=== PATIENT | male | born 1940 | race Caucasian/White ===

== ENCOUNTER 2021-03-06 07:08 | Inpatient (IN) | payer OTHER ==
--- OUTSIDE RECORDS SUMMARY | 2021-03-06 07:12 | XMS REPORT | Continuity of Care Document ---
:1940 Author Organization [facility] t Address [address] [place] [address] Care Team Providers Name Role Phone CADEN, A Attending Clinician Unavailable Caden CARNES, A Attending Clinician Pob, Lab Main Attending Clinician Unavailable Only, Test Attending Clinician Unavailable Doctor Unassigned, Name Attending Clinician Unavailable [place] Attending Clinician Unavailable CADEN, A Admitting Clinician Unavailable Caden CARNES, A Admitting Clinician Edita Admitting Clinician Unavailable Payers Payer Name Policy Type Policy Number Effective Date Expiration Date [facility] [id number] 2020 MEDICARE GOLD 00:00:00 [facility] - [id number] MEDICARE SOLUTIONS - MEDICARE COMPLETE (MEDICARE REPLACEMENT PPO) Problems This patient has no known problems. Allergies, Adverse Reactions, Alerts Allergy Allergy Status Severity Reaction(s) Onset Inactive Treating Comm ents Source Name Type Date Date Clinician CODEINE DRUG Active Low N/V Univers INGREDI 7-16 ity of 00:00: [place] [address] Medical Branch Codeine Drug Active Nausea Univers Intolera and/or 16 ity of nce Vomiting 00:00: [place] [address] Medical Branch Codeine Allergy Active [place] [facility] e Group Social History Social Habit Start Date Stop Date Quantity Comments Source Exposure to Not sure [facility] SARS-CoV-2 (event) Medica l Branch Tobacco use and 2020-09-20 2020-09-20 Never used [facility] exposure 00:00:00 00:00:00 Medical Branch Sex Ass[birth year] At [birth year] [facility] 00:00:00 00:00:00 Medical Branch Smoking Status Start Date Stop Date Source Unknown if ever smoked [facility] Former smoker 2020-09-20 00:00:00 2020-09-20 00:00:00 [facility] Medications Ordered Filled Start Stop Current Ordering Indication Dosage Frequency Signature Comments Components Source Medication Medication Date Date Medication? Clinician (SIG) Name Name losartan-hy Yes losartan Un aaron drochloroth 8-04 100 ity of iazide 20:56: mg-hydroch [place] 100-25 mg 23 lorothiazi Medi shira per tablet de 25 mg Branc h tablet Take 1 tablet by mouth once daily clopidogreL Yes Plavix 75 U nivers (PLAVIX) 75 8-04 mg tablet ity of mg tablet 20:56: Take 1 [place] 23 tablet Medical every day Branch by oral route as directed for 30 days. cloNIDine Yes clonidine Uni vers 0.1 mg 8-04 HCl 0.1 mg ity of tablet 20:56: tablet [place] 23 Take 1 Medical tablet Branch twice a day by oral route. aspirin 81 Yes Adult Low Un aaron mg EC 8-04 Dose ity of tablet 20:56: Aspirin 2 [place] 23 tab po qd Medical Branch losartan-hy Yes losartan Un aaron drochloroth 8-04 100 ity of iazide 20:56: mg-hydroch [place] 100-25 mg 23 lorothiazi Medi shira per tablet de 25 mg Branc h tablet Take 1 tablet by mouth once daily clopidogreL Yes Plavix 75 U nivers (PLAVIX) 75 8-04 mg tablet ity of mg tablet 20:56: Take 1 [place] 23 tablet Medical every day Branch by oral route as directed for 30 days. cloNIDine Yes clonidine Uni vers 0.1 mg 8-04 HCl 0.1 mg ity of tablet 20:56: tablet [place] 23 Take 1 Medical tablet Branch twice a day by oral route. aspirin 81 Yes Adult Low Un aaron mg EC 804 Dose ity of tablet 20:56: Aspirin 2 [place] 23 tab po qd Medical Branch lactated Yes 1000mL at 100 Unive rs ringers IV 8-04 mL/hr, ity of infusion 20:30: 1,000 [place] 1[place]000 [place] 00 IV Medical Infusion, Branch CONTINUOUS , Starting Sat09/21/20 at 1530, Until Discontinu ed, Routine, PACU lactated 2020- No 1000mL at 100 Univ ers ringers IV 8 08-04 mL/hr, ity of infusion 20:30: 22:56 1,000 mL, Girish as 1,000 mL 00 :24 IV Medical Infusion, Branch CONTINUOUS , Starting Sat09/21/20 at 1530, Until Sat09/21/20 at 1756, Routine, PACU balanced Yes PRN, Univers salt irrig 09-21 Starting ity o f soln comb1 20:04: Sat09/21/20 [place] (BSS PLUS) 00 at 1504, Medic al ophthalmic Until Branch solution Discontinu 500 mL bag ed, Routine, Intra-op carbachoL Yes PRN, Univers (MIOSTAT) 09-21 Starting ity of 0.01 % 20:04: Sat09/21/20 [place] intraocular 00 at 1504, Medi shira injection Until Branch Discontinu ed, Routine, Intra-op balanced 2020- No PRN, Univers salt [place] 09-21 Starting ity of soln comb1 20:04: 22:56 Sat09/21/20 [place] (BSS PLUS) 00 :24 at 1504, Medic al ophthalmic Until Wed Bran ch solution 09/21/20 at 500 mL bag 1756, Routine, Intra-op carbachoL 2020- No PRN, Univers (MIOSTAT) 09-21 Starting ity o f 0.01 % 20:04: 22:56 09/21/20 [place] intraocular 00 :24 at 1504, Medi shira injection Until Wed Branc h 09/21/20 at 1756, Routine, Intra-op ceFAZolin Yes PRN, Univers (ANCEF) 09-21 Starting ity of injection 20:03: 09/21/20 [place] 00 [place] 1503, Medical Until Branch Discontinu ed, ROBERT, Intra-op dexamethaso Yes PRN, Univer s ne 09-21 Starting ity of (DECADRON 20:03: 09/21/[place] PHOSPHATE[place] 00 at 1503, Medic al injection Until Branch Discontinu ed, Routine, Intra-op DUOVISC Yes PRN, Univers (DUOVISC 09-21 Starting ity of VISCO 20:03: 09/21/20 [place] ELASTIC) 3 00 at 1503, Medic al %-4 %(0.5 Until Branch mL) 1 % Discontinu (0.55 mL) ed, intraocular Routine, injection Intra-op ceFAZolin 2020- No PRN, Univers (ANC) 09-21 Starting ity of injection 20:03: 22:56 09/21/20 [place] 00 :24 at 1503, Medical Until Wed Branch 09/21/20 at 1756, ROBERT, Intra-op dexamethaso 2020- No PRN, Unive rs ne 09-21 Starting ity of (DECADRON 20:03: 22:56 Sat09/21/20 [place] PHOSPHATE) 00 :24 at 1503, Medic al injection Until Wed Branc h 09/21/20 at 1756, Routine, Intra-op DUOVISC 2020- No PRN, Univers (DUOVISC 09-21 Starting ity of VISCO 20:03: 22:56 09/21/20 [place] ELASTIC) 3 00 :24 at 1503, Medic al %-4 %(0.5 Until Wed Branc h mL) 1 % 09/21/20 at (0.55 mL) 1756, intraocular Routine, injection Intra-op EPINEPHrine Yes PRN, Univer s 1:1,000 (1 09-21 Starting ity o f mg/mL) 20:01: 09/21/20 [place] (ADRENALIN) 00 at 1501, Medi shira injection Until Branch Discontinu ed, Routine, Intra-op EPINEPHrine 2020- No PRN, Unive rs 1:1,000 (1 09-21 Starting ity of mg/mL) 20:01: 22:56 09/21/20 [place] (ADRENALIN) 00 :24 at 1501, Medi shira injection Until Sat Branc h 09/21/20 at 1756, Routine, Intra-op sodium Yes PRN, Univers chloride 8- Starting ity of (NS) 20:00: 09/21/20 [place] injection 00 at 1500, Medica l Until Branch Discontinu ed, Routine, Intra-op sodium 2020- No PRN, Univers chloride 09-21 Starting ity of (NS) 20:00: 22:56 09/21/20 [place] injection 00 :24 at 1500, Medica l Until Sat Branch 09/21/20 at 1756, Routine, Intra-op water for Yes PRN, Univers irrigation 09-21 Starting ity o f irrigation 19:59: Sat09/21/20 [place] solution 00 at 1459, Medical Until Branch Discontinu ed, Routine, Intra-op neomycin-po Yes PRN, Univer s lymyxin-dex 09-21 Starting ity of amethasone 19:59: 09/21/20 [place] (MAXITROL) 00 at 1459, Medic al 3.5 Until Branch mg/g-10,000 Discontinu unit/g-0.1 ed, % Routine, ophthalmic Intra-op ointment water for 2020- No PRN, Univers irrigation 09-21 Starting ity of irrigation 19:59: 22:56 [facility] 09/21/20 [place] solution 00 :24 at 1459, Medical Until [facility] Branch 09/21/20 at 1756, Routine, Intra-op neomycin-po 2020- No PRN, Unive rs lymyxin-dex 09-21 Starting ity of amethasone 19:59: 22:56 [facility] 09/21/20 [place] (MAXITROL) 00 :24 at 1459, Medic al 3.5 Until Sat Branch mg/g-10,000 09/21/20 at unit/g-0.1 1756, % Routine, ophthalmic Intra-op ointment Hyaluronida Yes PRN, Univer s se, Human 09-21 Starting ity of Recomb. 19:48: 09/21/20 [place] (HYLENEX) 00 at 1448, Medica l injection Until Branch Discontinu ed, Routine, Intra-op eye block Yes PRN, Univers syringe 09-21 Starting ity o f mL 19:48: 09/21/20 [place] 00 at 1448, Medical Until Branch Discontinu ed, Intra-op Hyaluronida 2020- No PRN, Unive rs se, Human 09-21 Starting ity o f Recomb. 19:48: 22:56 [facility] 09/21/20 [place] as (HYLENEX) 00 :24 at 1448, Medica l injection Until [facility] h 09/21/20 at 1756, Routine, Intra-op eye block 2020- No PRN, Univers syringe 11 09-21 Starting ity of mL 19:48: 22:56 [facility] 09/21/20 [place] 00 :24 at 1448, Medical Until [facility] 09/21/20 at 1756, Intra-op mydriatic 2020- No .5mL 0.5 mL, Univ ers #5 09-21 Right Eye, ity of ophthalmic 18:45: 18:59 ONCE, 1 [place] solution 00 :00 dose, Sat Medica l 0.5 mL 09/21/20 at Branch syringe 1345, Routine, DSU Pre-op lactated 2020- No 1000mL at 42 Unive rs ringers IV 09-21 mL/hr, ity of infusion 18:45: 19:16 1,000 mL, [place] 1,000 mL 00 :00 IV Medical Infusion, Branch ONCE, 1 dose, 09/21/20 at 1345, Routine, DSU Pre-op mydriatic 2020- No .5mL 0.5 mL, Univ ers #5 09-21 Right Eye, ity of ophthalmic 18:45: 18:59 ONCE, 1 [place] solution 00 :00 dose, Wed Medica l 0.5 mL 09/21/20 at Branch syringe 1345, Routine, DSU Pre-op lactated 2021-0 2021- No 1000mL at 42 Unive rs ringers IV 8 08-04 mL/hr, ity of infusion 18:45: 19:16 1,000 mL, [place] 1,000 mL 00 :00 IV Medical Infusion, Branch ONCE, 1 dose, Sat09/21/20 at 1345, Routine, DSU Pre-op clopidogreL Yes Plavix 75 U nivers (PLAVIX) 75 7-20 mg tablet ity of mg tablet 14:23: Take 1 [place] 03 tablet Medical every day Branch by oral route as directed for 30 days. cloNIDine Yes clonidine Uni vers 0.1 mg 7-20 HCl 0.1 mg ity of tablet 14:23: tablet [place] 03 Take 1 Medical tablet Branch twice a day by oral route. aspirin 81 Yes Adult Low Un aaron mg EC 7-20 Dose ity of tablet 14:23: Aspirin 2 [place] 03 tab po qd Medical Branch clopidogreL Yes Plavix 75 U nivers (PLAVIX) 75 7-20 mg tablet ity of mg tablet 14:23: Take 1 [place] 03 tablet Medical every day Branch by oral route as directed for 30 days. cloNIDine Yes clonidine Uni vers 0.1 mg 7-20 HCl 0.1 mg ity of tablet 14:23: tablet [place] 03 Take 1 Medical tablet Branch twice a day by oral route. aspirin 81 Yes Adult Low Un aaron mg EC 7-20 Dose ity of tablet 14:23: Aspirin 2 [place] 03 tab po qd Medical Branch losartan-hy Yes losartan Un a[place] drochloroth 7-20 100 ity of iazide 14:23: mg-hydroch [place] 100-25 mg 02 lorothiazi Medi shira per tablet de 25 mg Branc h tablet Take 1 tablet by mouth once daily losartan-hy Yes losartan Un [place] drochloroth 7-20 100 ity of iazide 14:23: mg-hydroch [place] 100-25 mg 02 lorothiazi Medi shira per tablet de 25 mg Branc h tablet Take 1 tablet by mouth once daily levothyroxi Yes Euthyrox Un a[place] ne 5-27 88 mcg ity of (EUTHYROX) 00:00: tablet [place] 88 mcg 00 Take 1 Medical tablet tablet Branch every day by oral route. levothyroxi 2020-0 Yes Euthyrox Un aaron ne 5-27 88 mcg ity of (EUTHYROX) 00:00: tablet [place] 88 mcg 00 Take 1 Medical tablet tablet Branch every day by oral route. levothyroxi 2020-0 Yes Euthyrox Un aaron ne 5-27 88 mcg ity of (EUTHYROX) 00:00: tablet [place] 88 mcg 00 Take 1 Medical tablet tablet Branch every day by oral route. levothyroxi 2020-0 Yes Euthyrox Un aaron ne 5-27 88 mcg ity of (EUTHYROX) 00:00: tablet [place] 88 mcg 00 Take 1 Medical tablet tablet Branch every day by oral route. metaxalone 2020-0 Yes metaxalone U nivers 800 mg 3-11 800 mg ity of tablet 00:00: tablet 00 Take 1 Medical tablet 3 Branch times a day by oral route. metaxalone 2020-0 Yes metaxalone U nivers 800 mg 3-11 800 mg ity of tablet 00:00: tablet 00 Take 1 Medical tablet 3 Branch times a day by oral route. metaxalone 2020-0 Yes metaxalone U nivers 800 mg 3-11 800 mg ity of tablet 00:00: tablet 00 Take 1 Medical tablet 3 Branch times a day by oral route. metaxalone 2020-0 Yes metaxalone U nivers 800 mg 3-11 800 mg ity of tablet 00:00: tablet [place] 00 Take 1 Medical tablet 3 Branch times a day by oral route. spironolact 2020-0 Yes 25mg Take 25 mg Univers one 25 mg 8-04 by mouth. ity o f tablet 00:00: [facility] spironolact 2020-0 Yes 25mg Take 25 mg Univers one 25 mg 8-04 by mouth. ity o f tablet 00:00: [facility] spironolact 2020-0 Yes 25mg Take 25 mg Univers one 25 mg 8-04 by mouth. ity o f tablet 00:00: [facility] spironolact 2020-0 Yes 25mg Take 25 mg Univers one 25 mg 8-04 by mouth. ity o f tablet 00:00: [facility] amlodipine amlodipine No amlodipine [place] 10 mg 10 mg 10 mg da tablet tablet tablet Medical Group Aspir-81 Aspir-81 No Aspir-81 [place] [facility] levothyroxi levothyroxi No levothyrox [place] ne 25 mcg ne 25 mcg ine 25 mcg da tablet tablet tablet Medical Group spironolact spironolact No spironolac [place] one 25 mg one 25 mg tone 25 mg da tablet tablet tablet Medical Group Vitamin D3 Vitamin D3 No Vitamin D3 [place] [facility] Vital Signs Vital Name Observation Time Observation Value Comments Source Respiratory rate 2020-09-21 20:25:00 18 /min [facility] Systolic blood 2020-09-21 20:20:00 223 mm[Hg] Univer sity of pressure [facility] Diastolic blood 2020-09-21 20:20:00 105 mm[Hg] Unive rsity of [facility] Heart rate 2020-09-21 20:20:00 64 /min Universi ty of [facility] Oxygen saturation in 2020-09-21 20:20:00 93 /min University of Arterial blood by [facility] Pulse oximetry Branch Body temperature 2020-09-21 19:06:00 37 Molly [facility] ersity [facility] Body weight 2020-09-16 17:44:00 90 kg Universi ty [facility] Medical Branch BMI 2020-09-16 17:44:00 26.87 kg/m2 Univers ty [facility] Respiratory rate 2020-09-21 20:25:00 18 /min [facility] Sy[facility]olic blood 2020-09-21 20:20:00 223 mm[Hg] Univer sity of [facility] Branch Diastolic blood 2020-09-21 20:20:00 105 mm[Hg] Unive rsity of [facility] Heart rate 2020-09-21 20:20:00 64 /min Universi ty of [facility] Branch Oxygen saturation in 2020-09-21 20:20:00 93 /min University of Arterial blood by [place] [employer] shira Pulse oximetry Branch Body temperature 2020-09-21 19:06:00 37 Molly Univ ersity of [place] [facility] [place] Body weight 2020-09-16 17:44:00 90 kg Universi ty of [place] [facility] [place] BMI 2020-09-16 17:44:00 26.87 kg/m2 Universi ty [facility] BP Diastolic 2017-11-01 00:00:00 83 mm[Hg] [facility] BP Systolic 2017-11-01 00:00:00 131 mm[Hg] [facility] Procedures Procedure Date / Time Performing Source Performed Clinician PHACOEMULSIFICATION OF 2020-09-21 Abhi Negrete [facility] CATARACT WITH INTRAOCULAR 19:32:00 [facility] LENS IMPLANT CONSENT/REFUSAL FOR DIAGNOSIS 2020-09-19 Doctor Unassigned, [facility] AND TREATMENT 20:05:07 [place] [facility] Branch CONSENT/REFUSAL FOR DIAGNOSIS 2020-09-19 Doctor Unassigned, [facility] AND TREATMENT 20:05:07 [place] [facility] ASSIGNMENT OF BENEFITS 2020-09-19 Doctor Unassigned, [facility] 20:04:42 [place] [facility] ASSIGNMENT OF BENEFITS 2020-09-19 Doctor Unassigned, [facility] 20:04:42 [place] [facility] Branch CONSENT/REFUSAL FOR DIAGNOSIS 2020-09-19 Doctor Unassigned, [facility] AND TREATMENT 20:04:14 [place] [facility] CONSENT/REFUSAL FOR DIAGNOSIS 2020-09-19 Doctor Unassigned, [facility] AND TREATMENT 20:04:14 [place] [facility] Branch ASSIGNMENT OF BENEFITS 2020-09-19 [facility] 20:03:48 [place] [facility] ASSIGNMENT OF BENEFITS 2020-09-19 Doctor Unassigned, [facility] 20:03:48 [place] [facility] ASSIGNMENT OF BENEFITS 2020-09-05 Doctor Unassigned, [facility] 20:32:12 [place] [facility] Encounters Start End Encounter Admission Attending Care Care Encounter Source Date/Time Date/Time Type Type Clinicians Facility Department ID 2020-12-19 [id number] Univers 12:04:20 ABHI [facility] 2020-12-19 [facility] [id number] Univers 09:13:07 ABHI [facility] 2020-09-21 2020-09-21 [facility] [id number] Univers 13:28:00 15:55:00 Encounter Abhi Laureano [id number] jorge montalvo [place] 4[place]2.[place].2.686 [place] [id number] [facility] 071 Branch 2020-09-21 2020-09-21 Surgery Caden [facility] [id number] Univers 15:01:00 15:40:00 Abhi Db Georgi [id number] ity of [place].2.686 [place] [id number] [facility] 020 Branch 2020-09-19 2020-09-19 Society Editor Avtar, Adc Lab Main [facility] 1.2.8 [id number] [id number] Univers 15:06:54 15:21:54 Visit Abhi Negrete 350.1.13.1 0 [place]y [place] 4[place].2.686 [place] Profess[place] [id number] [address] 2020-09-19 2020-09-19 Laboratory Only, Adc Test [facility] 1.2.840. [id number] Univers 15:06:07 15:21:07 Only CadenAbhi 350.1.13.1 0 [place]y [place].2.686 [place] [id number] [address] 2020-09-19 2020-09-19 Outpatient R [facility] [id number] Univers 15:00:00 15:00:00 [id number] ity [facility] 2020-09-19 2020-09-19 [facility] [id number] Univers 15:00:00 15:00:00 ABHI ity [facility] 2020-09-05 2020-09-05 Outpatient R [facility] [id number] Univers 16:00:00 16:00:00 [id number] ity [facility] 2020-09-05 2020-09-05 Society Editor Avtar, Adc Lab Main [facility] 1.2.8 40.114 [id number] Univers 15:34:57 15:49:57 Visit Caden Abhi Db Georgi 350.1.13.1 0 [place]y [place].2.[place] Profess[place] [id number] Pa dical nal [address] [facility] 2020-09-05 2020-09-05 Laboratory Only, Adc Test [facility] 1.2.840. 114 [id number] Univers 15:26:37 15:41:37 Only Abhi Negrete 350.1.13.1 0 ity of [place] 4.2.7.2.686 [facility] [id number] [facility] 353 Branch 2020-09-05 2020-09-05 Outpatient R CADEN [facility] [id number] Univers 15:15:00 15:15:00 ABHI ity [facility] 2020-09-05 2020-09-05 Orders Doctor YASMIN [id number] Univers 00:00:00 00:00:00 Only Unassigned, CARO 350.1.13.10 [facility] 4.2.7.2.686 [facility] [id number] [place] [address] Branch 2020-01-06 2020-01-06 Outpatient Edita [facility] [id number] [place] 02:29:00 02:29:00 1118 danyelle Medical [facility] 2017-11-01 2017-11-01 Gunenr Abrams [facility] [place] - [id number] M [place]or 00:00:00 00:00:00 MD Celena: [facility] [address] [place] [phone] , Ph. 2017-10-18 2017-10-18 Richi [facility] [place] - [id number] M atagor 00:00:00 00:00:00 Discovery danyelle Kohler MD: [address] [place] [address], [place] [address] , Ph. Results Test Description Test Time Test Comments Results Result Comments Source Prostate specific Ag panel - Serum or Plasma 2017-10-26 10:3 0:00 Test Item Value Reference Range Interpretation Comme nts Prostate specific Ag [Mass/volume] in Serum or Plasma (test 31.27 NG/mL 0.0-4.00 H code = 2857-1) free PSA % (test code = free PSA %) 9.00 % >25 L free PSA (test code = free PSA) 2.84 NG/mL [facility] Culture panel - Urine 2017-10-18 10:30:00 Test Item Value Reference Range Interpretation Comments Color of Urine by Auto (test dark yellow code = 15272-0) Appearance of Urine (test code SL cloudy clear A = 5767-9) Glucose [Presence] in Urine by negative negative Automated test strip (test code = 99074-3) Bilirubin.total [Mass/volume] negative negative in Urine (test code = 1978-6) Ketones [Mass/volume] in Urine negative negative by Automated test strip (test code = 20371-3) Specific gravity of Urine by 1.015 1.003-1.030 Automated test strip (test code = 42941-6) blood urine (test code = blood negative negative urine) pH of Urine (test code = 6.000 5-9 2756-5) protein urine (UA) (test code = =1+ (50 negative H protein urine (UA)) Urobilinogen [Presence] in normal 0.2-1.0 Urine (test code = 21068-1) Nitrite [Presence] in Urine by negative negative Test strip (test code = 5802-4) Leukocyte esterase [Presence] negative negative in Urine by Automated test strip (test code = 98605-9) Erythrocytes [#/volume] in <1 0-5 Urine by Automated count (test code = 798-9) Leukocytes [#/area] in Urine =6-10 0-5 H sediment by Automated count (test code = 68770-1) Epithelial cells [Presence] in =1-5 0-5 Urine sediment by Light microscopy (test code = 65408-9) Bacteria identified in Urine by none detected none detect Culture (test code = 630-4) Casts [#/area] in Urine =6-10 none detect H sediment by Automated count (test code = 43914-5) urine culture added? (test code yes = urine culture added?) Mucus [Presence] in Urine by =1 none detect Automated (test code = 98896-4) Spermatozoa [Presence] in Urine =10-29 none detect H by Automated (test code = 67732-7) [facility] by [id number] 00:00:00 Test Item Value Reference Range Interpretation Comments Bacteria identified in no growth after 2 Urine by Culture (test days code = 630-4) [facility]
--- NOTE | 2021-03-06 09:15 | RAD REPORT ---
EXAM DESCRIPTION: CT - Head Brain Wo Cont - 03/06/2021 9:01 am CLINICAL HISTORY: worseningn of aphasia;Aphasia COMPARISON: No comparisons TECHNIQUE: All CT scans are performed using dose optimization technique as appropriate and may inclu de automated exposure control or mA/KV adjustment according to patient size. 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 Age advanced cerebral atrophy. Age-indeterminate right basal ganglia lacunar infarct. Ex vacuo dilatation of the ventricular system. The paranasal sinuses and mastoids are clear. The calvarium is intact. 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 No acute intracranial hemorrhage. No acute large vascular territory infarct is identified.
--- NOTE | 2021-03-06 09:21 | RAD REPORT ---
EXAM DESCRIPTION: RAD - Chest Single View - 03/06/2021 9:14 am CLINICAL HISTORY: DYSPNEA COMPARISON: No comparisons FINDINGS: Lines: None. Lungs: A few small patchy areas of opacities are present in the right upper lobe. Left lung is clear. Pleural: No significant pleural effusions or pneumothorax. Cardiac: The heart size is within normal limits. Bones: No acute fractures. Other: Torturous thoracic aorta. IMPRESSION: Ill-defined nonspecific opacities in the right upper lobe could reflect mild infection o r inflammation.
[2021-03-06 09:25] LABS: Absolute Lymphocytes (CBC) 0.8 K/uL (0.7-4.9); Hematocrit 36.1 % (39.6-49.0); Lymphocytes % 10.3 % (15.3-44.8); MPV 6.4 fL (7.6-11.3); RBC Red Blood Cell Count 4.23 M/uL (4.33-5.43)
[2021-03-06 09:31] LABS: Protime INR 1.54
[2021-03-06 09:45] LABS: Albumin 2.4 g/dL (3.4-5.0); Bilirubin Direct 0.3 mg/dL (0-0.2); Bilirubin Total 0.9 mg/dL (0.2-1.0); Potassium 4.1 mmol/L (3.5-5.1); Protein, Total 6.7 g/dL (6.4-8.2)
[2021-03-06 09:50] LABS: Troponin High Sensitivity 103.1 pg/mL (<58.9)
[2021-03-06] MEDS ORDERED: FENTANYL CITR 100 MCG/2 ML ONE (10:14)
--- NOTE | 2021-03-06 10:20 | EDPHYS ---
Physician Documentation [facility] Name: Jean Adams Age: 80 yrs Sex: Male : 1940 Arrival Date: 03/06/2021 Time: 07:10 Bed 20 Private MD: ED Physician Landon Ramirez HPI: 03/06 09:59 This 80 yrs old Male presents to ER via Wheelchair with complaints of Difficulty jr8 Swallowing. 09:59 Severity of symptoms: At their worst the symptoms were moderate. Modifying factors: The jr8 symptoms are alleviated by nothing, the symptoms are aggravated by nothing. It is unknown whether or not the patient has had similar symptoms in the past. The patient has been recently seen by a physician:. This is a 80-year-old male patient that was brought to the emergency room for further evaluation of worsening of dysphagia. Daughter of patient stated that he had a small stroke and heart attack back on 16 February. Had been in [facility] for the past several days doing rehabilitation but had noticed significant decline in the ability to swallow over the last few days. Also noticed worsening of contracture of the left hand. Denies any other new symptoms at this time. Patient was discharged from [facility] rehab to come to the emergency room today for further evaluation of worsening of symptoms.. Historical: - Allergies: 07:20 Codeine; vg1 - PMHx: 07:20 Myocardial infarction; Transient cerebral ischemia; Hypertensive disorder; vg1 - Immunization history:: Client reports having NOT received the Covid vaccine. - Social history:: Smoking status: Patient denies any tobacco usage or history of. ROS: 09:59 Eyes: Negative for injury, pain, redness, and discharge, ENT: Negative for injury, jr8 pain, and discharge, Neck: Negative for injury, pain, and swelling, Cardiovascular: Negative for chest pain, palpitations, and edema, Respiratory: Negative for shortness of breath, cough, wheezing, and pleuritic chest pain, Abdomen/GI: Negative for abdominal pain, nausea, vomiting, diarrhea, and constipation, Back: Negative for injury and pain, MS/Extremity: Negative for injury and deformity, Skin: Negative for injury, rash, and discoloration. 09:59 Neuro: Positive for weakness, Dysphagia. Exam: 10:10 Constitutional: This is a well developed, well nourished patient who is awake, alert, jr8 and in no acute distress. Eyes: Pupils equal round and reactive to light, extra-ocular motions intact. Lids and lashes normal. Conjunctiva and sclera are non-icteric and not injected. Cornea within normal limits. Periorbital areas with no swelling, redness, or edema. ENT: Nares patent. No nasal discharge, no septal abnormalities noted. Tympanic membranes are normal and external auditory canals are clear. Oropharynx with no redness, swelling, or masses, exudates, or evidence of obstruction, uvula midline. Mucous membranes moist. Neck: Trachea midline, no thyromegaly or masses palpated, and no cervical lymphadenopathy. Supple, full range of motion without nuchal rigidity, or vertebral point tenderness. No Meningismus. Cardiovascular: Regular rate and rhythm with a normal S1 and S2. No gallops, murmurs, or rubs. Normal PMI, no JVD. No pulse deficits. Respiratory: Lungs have equal breath sounds bilaterally, clear to auscultation and percussion. No rales, rhonchi or wheezes noted. No increased work of breathing, no retractions or nasal flaring. Abdomen/GI: Soft, non-tender, with normal bowel sounds. No distension or tympany. No guarding or rebound. No evidence of tenderness throughout. Back: No spinal tenderness. No costovertebral tenderness. Full range of motion. Skin: Warm, dry with normal turgor. Normal color with no rashes, no lesions, and no evidence of cellulitis. MS/ Extremity: Pulses equal, no cyanosis. Neurovascular intact. Full, normal range of motion. Contracted left hand 10:10 Neuro: Orientation: to person, place, time \\T\\ situation. Mentation: is normal, Memory: is normal, Cranial nerves: CN I not tested, CN II- XII are normal as tested, extraocular movements are intact, Facial palsy and sensory deficits are absent. Speech is hoarse, slowed, Cerebellar function: normal finger to nose testing, Motor: moves all fours, Strength is 3/5 in the left arm and left leg, Sensation: no obvious gross deficits, seizure activity, is not displayed by the patient, Abnormal movements: there are no abnormal movements. Vital Signs: 07:11 BP 129 / 77; Pulse 80; Resp 16; Temp 98.4; Pulse Ox 95% ; Weight 90.72 kg; Height 6 ft. vg1 0 in. (182.88 cm); Pain 0/10; 08:23 BP 132 / 78; Pulse 85; Resp 17; Pulse Ox 95% ; vg1 22:00 BP 173 / 80; Pulse 95; Resp 16; Pulse Ox 91% on 2 lpm NC; ld1 23:30 BP 160 / 91; Pulse 95; Resp 16; Temp 98.6; Pulse Ox 95% on 2 lpm NC; ld1 07:11 Body Mass Index 27.12 (90.72 kg, 182.88 cm) vg1 MDM: 08:13 Patient medically screened. jr8 10:10 Data reviewed: vital signs, nurses notes, lab test result(s), EKG, radiologic studies, jr8 CT scan, MRI, plain films. Data interpreted: Pulse oximetry: on room air is 95 %. Interpretation: normal. Counseling: I had a detailed discussion with the patient and/or guardian regarding: the historical points, exam findings, and any diagnostic results supporting the discharge/admit diagnosis, lab results, radiology results, the need for further work-up and treatment in the hospital. 03/06 08:39 Order name: Basic Metabolic Panel; Complete Time: 10:09 03/06 08:39 Order name: CBC with Diff; Complete Time: 10:49 03/06 08:39 Order name: LFT's; Complete Time: 10:03/06 08:39 Order name: Magnesium; Complete Time: 10:09 03/06 08:39 Order name: NT PRO-BNP; Complete Time: 10:09 03/06 08:39 Order name: PT-INR; Complete Time: 09:34 03/06 08:39 Order name: Troponin HS; Complete Time: 10:09 03/06 08:39 Order name: XRAY Chest (1 view); Complete Time: 09:25 03/06 08:39 Order name: CT Head Brain wo Cont; Complete Time: 09:25 03/06 09:34 Order name: MRI - Brain Wo Cont; Complete Time: 14:12 03/06 10:17 Order name: Blood Culture Adult (2) 8 03/06 10:36 Order name: Manual Differential; Complete Time: 10:49 EDMS 03/06 10:53 Order name: COVID-19 SARS RT PCR (Document "Date of Onset" if Symptomatic); Complete [facility] Time: 14:12 03/06 08:39 Order name: EKG; Complete Time: 08:40 03/06 08:39 Order name: Cardiac monitoring; Complete Time: 08:48 [facility] 03/06 08:39 Order name: EKG - Nurse/Tech; Complete Time: 08:48 8 03/06 08:39 Order name: IV Saline Lock; Complete Time: 09:17 8 03/06 08:39 Order name: Labs collected and sent; Complete Time: 09:17 8 03/06 08:39 Order name: O2 Per Protocol; Complete Time: 08:44 03/06 08:39 Order name: O2 Sat Monitoring; Complete Time: 08:44 jr Administered Medications: 10:18 Drug: fentaNYL (PF) 50 mcg Route: IVP; Site: right antecubital; [facility] 10:29 Drug: Zofran (Ondansetron) 4 mg Route: IVP; Site: right antecubital; [facility] 10:29 Drug: foLIC Acid 1 mg Route: IVPB; Site: right antecubital; [facility] 10:30 Drug: Zosyn (piperacillin-tazobactam) 3.375 grams Route: IVPB; Infused Over: 60 mins; [facility] Site: right antecubital; 10:32 Not Given (Other Intervention Used): Aspirin Suppository 300 mg DE once [facility] 11:02 Drug: NS 0.9% 1000 ml Route: IV; Rate: 75 ml/hr; Site: left antecubital; [facility] 03/07 00:09 Follow up: Response: No adverse reaction; IV Status: Infusion continued upon admission vc1 Disposition: 07:48 Co-signature as Attending Physician, Landon Ramirez MD I agree with the assessment and catrachito plan of care. Disposition Summary: 03/06/21 10:20 Hospitalization Ordered Hospitalization Status: Inpatient Admission [facility] Provider: Delmar Esqueda Condition: Stable jr Problem: new jr Symptoms: are unchanged [facility] Bed/Room Type: Standard [facility] Location: Telemetry/MedSurg (Inpatient)(03/06/21 22:18) mw Room Assignment: 410(01/17/22 23:04) mw Diagnosis - Cerebral infarction, unspecified jr8 - Dysphagia jr8 - Weakness jr8 Forms: - Medication Reconciliation Form jr8 - SBAR form jr8 Signatures: Dispatcher [employer] EDLoly Lemus Martha RN RN Landon Sherwood MD MD cha Roszak, Josh, PA PA jr8 Shobha Minaya RN RN vg1 Kelsea Dale RN RN jh5 Venus Anaya RN vc1 Corrections: (The following items were deleted from the chart) 03/06 15:12 10:20 Telemetry/MedSurg (Inpatient) jr8 bd 15:12 10:20 jr8 bd 22:18 15:12 [facility] ER HOLD bd mw 22:18 15:12 ERHOLD- bd mw 23:04 22:18 mw mw
--- NOTE | 2021-03-06 10:20 | ER ---
Nurse's Notes [facility] Name: Jean Adams Age: 80 yrs Sex: Male : 1940 Arrival Date: 03/06/2021 Time: 07:10 Bed 20 Private MD: Diagnosis: Cerebral infarction, unspecified;Dysphagia;Weakness Presentation: 03/06 07:11 Chief complaint: Patient's son or daughter states: On Saturday03/04/21 pt was at [address] for difficulty swallowing and 'was unable to treat pt'. Daughter states is still having difficulty swallowing solids and fluids. Coronavirus screen: Vaccine status: Patient reports being unvaccinated. Client denies travel out of the [place] in the last 14 days. Ebola Screen: Patient negative for fever greater than or equal to 101.5 degrees Fahrenheit, and additional compatible Ebola Virus Disease symptoms. Initial Sepsis Screen: Does the patient meet any 2 criteria? No. Patient's initial sepsis screen is negative. Does the patient have a suspected source of infection? No. Patient's initial sepsis screen is negative. Risk Assessment: Do you want to hurt yourself or someone else? Patient reports no desire to harm self or others. Onset of symptoms was March 04, 2021. 07:11 Method Of Arrival: Wheelchair [facility] 07:11 Acuity: RUTH ANN 3 vg1 Triage Assessment: 07:20 General: Appears in no apparent distress. uncomfortable, Behavior is calm, cooperative. vg1 Pain: Denies pain. Neuro: Level of Consciousness is awake, alert, obeys commands, Oriented to person, place, time, situation. Respiratory: Airway is patent Respiratory effort is even, unlabored. Historical: - Allergies: 07:20 Codeine; vg1 - PMHx: 07:20 Myocardial infarction; Transient cerebral ischemia; Hypertensive disorder; vg1 - Immunization history:: Client reports having NOT received the Covid vaccine. - Social history:: Smoking status: Patient denies any tobacco usage or history of. Screenin:17 Abuse screen: Denies threats or abuse. Nutritional screening: No deficits noted. vg1 Tuberculosis screening: No symptoms or risk factors identified. Fall Risk No fall in past 12 months (0 pts). No secondary diagnosis (0 pts). No IV (0 pts). Ambulatory Aid- Crutches/Cane/Walker (15 pts). Gait- Weak (10 pts.). Mental Status- Oriented to own ability (0 pts). Total Thomas Fall Scale indicates Low Risk Score (25-44 pts). Fall prevention measures have been instituted. Side Rails Up X 2 Placed close to Nursing Station Family Present and informed to notify staff if they need to leave bedside. Assessment: 08:17 General: Appears in no apparent distress. uncomfortable, Behavior is calm, cooperative. vg1 Pain: Denies pain. Neuro: Level of Consciousness is awake, alert, obeys commands, Oriented to person, place, time, situation. Cardiovascular: Patient's skin is warm and dry. Respiratory: Airway is patent Respiratory effort is even, unlabored. GI: No signs and/or symptoms were reported involving the gastrointestinal system. : Morris in place. EENT: Throat is clear is pink. Derm: Skin is pink, warm \\T\\ dry. Musculoskeletal: Circulation, motion, and sensation intact. 16:59 Reassessment: Daughter at bedside would like to have a n order placed that Dr. Berkowitz jh5 can come and see pt here in hospital; daughter states [facility] is on campus on Saturday's and 's. 22:30 Reassessment: Took over care of patient from DAVIDSON Acevedo. vc1 23:30 General: Appears in no apparent distress. uncomfortable, Behavior is calm, cooperative. vc1 Neuro: Level of Consciousness is awake, lethargic, Oriented to person, place. 03/07 00:08 Reassessment: Attempted to call report to 4th floor, no answer, will call back.. vc1 00:31 Reassessment: called report to 4th floor, nurse will call back to get report.. vc1 Vital Signs: 03/06 07:11 BP 129 / 77; Pulse 80; Resp 16; Temp 98.4; Pulse Ox 95% ; Weight 90.72 kg; Height 6 ft. vg1 0 in. (182.88 cm); Pain 0/10; 08:23 BP 132 / 78; Pulse 85; Resp 17; Pulse Ox 95% ; vg1 22:00 BP 173 / 80; Pulse 95; Resp 16; Pulse Ox 91% on 2 lpm NC; ld1 23:30 BP 160 / 91; Pulse 95; Resp 16; Temp 98.6; Pulse Ox 95% on 2 lpm NC; ld1 07:11 Body Mass Index 27.12 (90.72 kg, 182.88 cm) vg1 ED Course: 07:10 Patient arrived in ED. wm 07:20 Triage completed. vg1 07:20 Arm band placed on. vg1 08:01 Patient placed in an exam room, on a stretcher. ll1 08:07 Shobha Minaya, RN is Primary Nurse. vg1 08:13 Theodore Penaloza PA is PHCP. jr8 08:13 Landon Ramirez MD is Attending Physician. jr8 08:17 Patient has correct armband on for positive identification. Placed in gown. Bed in low vg1 position. Call light in reach. Side rails up X2. Adult w/ patient. 08:59 CT Head Brain wo Cont In Process Unspecified. EDMS 09:15 XRAY Chest (1 view) In Process Unspecified. EDMS 10:18 Delmar Esqueda is Hospitalizing Provider. jr8 10:30 Blood Culture Adult (2) Sent. jh5 11:10 COVID-19 SARS RT PCR (Document "Date of Onset" if Symptomatic) Sent. jh5 13:31 MRI - Brain Wo Cont In Process Unspecified. EDMS 17:00 No provider procedures requiring assistance completed. Inserted saline lock: 20 gauge jh5 in left antecubital area, using aseptic technique. 18:41 Primary Nurse role handed off by Shobha Minaya, DAVIDSON bp 18:41 Nikolay Michel, RN is Primary Nurse. bp 03/07 01:40 Patient admitted, IV remains in place. vc1 Administered Medications: 03/06 10:18 Drug: fentaNYL (PF) 50 mcg Route: IVP; Site: right antecubital; jh5 10:29 Drug: Zofran (Ondansetron) 4 mg Route: IVP; Site: right antecubital; jh5 10:29 Drug: foLIC Acid 1 mg Route: IVPB; Site: right antecubital; jh5 10:30 Drug: Zosyn (piperacillin-tazobactam) 3.375 grams Route: IVPB; Infused Over: 60 mins; jh5 Site: right antecubital; 10:32 Not Given (Other Intervention Used): Aspirin Suppository 300 mg SC once jh5 11:02 Drug: NS 0.9% 1000 ml Route: IV; Rate: 75 ml/hr; Site: left antecubital; 5 03/07 00:09 Follow up: Response: No adverse reaction; IV Status: Infusion continued upon admission vc1 Outcome: 03/06 10:20 Decision to Hospitalize by Provider. jr8 03/07 01:40 Admitted to Tele accompanied by nurse, family with patient, via stretcher, room 210. vc1 Condition: good Instructed on the need for admit. 01:40 Patient left the ED. vc1 Signatures: Dispatcher [employer] EDMS Theodore Penaloza PA PA jr8 Nikolay Michel, RN RN Shobha Bustamante RN RN 1 Cinda Carrillo RN RN 1 Monique Mobley RN RN 1 Shey Cox Jessica, RN RN jh5 Venus Anaya RN RN vc1 Corrections: (The following items were deleted from the chart) 03/06 10:32 10:29 Aspirin Suppository 300 mg SC [place] [id number] 03/07 00:08 03/06 22:00 Reassessment: Took over care of patient from DAVIDSON Acevedo. 1 vc1 03/07 00:08 03/06 23:00 General: Appears in no apparent distress. uncomfortable, Behavior is calm, vc1 cooperative, 1 03/07 00:08 03/06 23:00 Neuro: Level of Consciousness is awake, lethargic, Oriented to person, vc1 place, [facility]
[2021-03-06] MEDS ORDERED: ONDANSETRON 4 MG/2 ML VIAL ONE (10:27)
[2021-03-06] MEDS ORDERED: PIPERACIL/TAZO 3.375 GM VIAL IV ONE (10:29)
[2021-03-06] MEDS ORDERED: FOLIC ACID 5 MG/ML VIAL ONE (10:29)
[2021-03-06] MEDS ORDERED: NA CHLORIDE 0.9% 100 ML ONE (10:30)
[2021-03-06] MEDS ORDERED: NA CHLORIDE 0.9% 50 ML ONE (10:35)
[2021-03-06 10:36] LABS: Blood Morphology Comment NOT SEEN (NOT SEEN); Platelet Estimate ADEQ
[2021-03-06] MEDS ORDERED: NA CHLORIDE 0.9% 1,000 ML ONE (11:05)
--- NOTE | 2021-03-06 12:40 | P.HP ---
Certification for Inpatient Patient admitted to: Inpatient With expected LOS: >2 Midnights Practitioner: I am a practitioner with admitting privileges, knowledge of patient current condition, hospital course, and medical plan of care. Services: Services provided to patient in accordance with Admission requirements found in Title 42 Section 412.3 of the Code of Federal Regulations Patient History Date of Service: 03/06/21 Reason for admission: Dysphagia History of Present Illness: 80-year-old gentleman with a history of multiple strokes in the past, history of dysphagia, recent admission for dysphagia at [facility] was brought to the emergency department because patient was suddenly not tolerating his dysphagia diet with comprises of pureed and thickened liquids. Daughter also reports patient mental status has declined lately and they are intermittent periods he becomes absent and just stares. Head CT done in the emergency department showed no acute process. Chest x-ray demonstrated right upper lobe opacities. Patient was confusion during my examination in the ED. He is hospitalized for further management. - Past Medical/Surgical History -: CVA -: Hypertension -: Prostate cancer - Family History Family History: Reviewed- Non-Contributory - Social History Alcohol use: No CD- Drugs: No Place of Residence: Home Review of Systems Other: No reports of diarrhea. No reports of shortness of breath, no report of fever. Except as documented, all other systems reviewed and negative. Physical Examination - Physical Exam General: In no apparent distress, Confused HEENT: Mucous membr. moist/pink Neck: JVD not distended Respiratory: Clear to auscultation bilaterally, Normal air movement Cardiovascular: Regular rate/rhythm, Normal S1 S2, Edema (Trace bilateral pedal edema) Gastrointestinal: Normal bowel sounds, Soft and benign, Non-distended, No tenderness Musculoskeletal: No swelling, No tenderness Integumentary: No rashes, No cyanosis Neurological: Other (Left-sided weakness, speech is garbled.) Lymphatics: No axilla or inguinal lymphadenopathy - Studies Laboratory Data (last 24 hrs) 03/06/21 09:16: PT 17.8 H, INR 1.54 03/06/21 09:16: WBC 7.90, Hgb 12.2 L, Hct 36.1 L, Plt Count 215 03/06/21 09:16: Sodium 136, Potassium 4.1, BUN 17, Creatinine 0.97, Glucose 117 H, Magnesium 3.0 H, Total Bilirubin 0.9, AST 152 H, ALT 25, Alkaline Phosphatase 761 H Assessment and Plan - Problems (Diagnosis) (1) History of CVA (cerebrovascular accident) Current Visit: Yes Status: Acute (2) Dysphagia Current Visit: Yes Status: Acute (3) Pneumonia Current Visit: Yes Status: Acute - Plan Admit the patient to the medical floor. MRI of the brain ordered to rule out acute CVA. Speech therapy consult for swallow evaluation. Keep n.p.o. Cover for aspiration pneumonia with IV Levaquin and Zosyn. Hydrate with D5 normal saline. Family is open to PEG tube if patient needs it. Aspirin and Plavix. - Advance Directives Does patient have a Living Will: Yes Does patient have a Durable POA for Healthcare: No
--- NOTE | 2021-03-06 13:50 | RAD REPORT ---
EXAM DESCRIPTION: MRI - Brain Wo Cont - 03/06/2021 1:39 pm CLINICAL HISTORY: cva, increased aphasia COMPARISON: Head Brain Wo Cont dated 03/06/2021 TECHNIQUE: Sagittal T1-weighted images were obtained along with axial PD, heavily T2-weighted and T2 -FLAIR images. Axial DWI and ADC mapping sequences were also obtained along with coronal heavily T2-w eighted images. FINDINGS: No intracranial hemorrhage is identified. No mass effect, edema or shift of midline struct ures. As a baseline, the patient has advanced for age atrophy with corresponding ventriculomegaly. Nu merous areas of old infarction identified. There is a diffuse T2/IR signal abnormality pattern throug hout the frontal and parietal lobe white matter. White matter signal abnormalities are present in the brainstem and central cerebellar hemispheres. Diffusion-weighted imaging shows several punctate 2 millimeter sized areas of restricted diffusion in the cortical and subcortical regions of each posterior frontal lobe. Similar 3 mm sized signal abnor malities are present in the cortex and subcortical region and deep sulci of the left parietal lobe. A small 3 mm focus of diffusion restriction seen in the posterior left thalamus and in the medial post erior left cerebellum. No acute restricted diffusion in the brainstem. These areas of diffusion signa l abnormality have corresponding diminished signal on ADC mapping. No extra-axial fluid collections. Signal voids are seen as a normal finding in the major intracrania l vessels. No acute globe or orbital content abnormality. No sella or supra sella acute finding. Mastoid air cells and paranasal sinuses are clear of acute finding. IMPRESSION: Numerous punctate areas of nonhemorrhagic acute infarction scattered in the cerebral hem ispheres, left thalamus and left cerebellum. Foci are scattered in multiple vascular distributions which would suggest small emboli coming from ou tside of the head or neck. Patient has a baseline of advanced for age atrophy, severe white matter chronic ischemic change and o ld infarction changes.
[2021-03-06] MEDS ORDERED: ONDANSETRON 4 MG/2 ML VIAL IV PRN (22:25)
[2021-03-06] MEDS ORDERED: ACETAMINOPHEN 500 MG TAB PO PRN (22:25)
[2021-03-06] MEDS ORDERED: Levofloxacin 750mg IV 750 MG/150 ML BAG IV SCH (22:25)
[2021-03-07] MEDS: PIPER TAZO 3.375 GM in NA CHLORIDE 0.9% 100 ML IV SCH ×4 (01:00→17:43)
[2021-03-07 03:49] LABS: Absolute Lymphocytes (CBC) 0.7 K/uL (0.7-4.9); Hematocrit 30.3 % (39.6-49.0); Lymphocytes % 7.5 % (15.3-44.8); RBC Red Blood Cell Count 3.54 M/uL (4.33-5.43)
[2021-03-07 04:13] LABS: Magnesium 2.3 mg/dL (1.8-2.4); Phosphorus 2.9 mg/dL (2.5-4.9); Potassium 4.1 mmol/L (3.5-5.1); Thyroid Stimulating Hormone 2.34 uIU/mL (0.360-3.740)
[2021-03-07 04:52] VITALS: BMI 26.8
--- NOTE | 2021-03-07 06:30 | P.PN ---
Date of Service: 03/07/21 Subjective: No significant change, to be evaluated today by speech therapy Daughter at bedside, states he has been declining over the last month Recent strokes Worsening dysphagia Stage IV prostate cancer ROS: 10 point ROS unable to be fully obtained Physical exam GEN: Alert, confused, mumbles HEENT: Normal conjunctiva, sclera anicteric CV: Regular rate and rhythm, no edema Pulm: Non-labored respirations on 2L NC ABD: Soft, non-tender, non-distended Integumentary: No rashes Neuro: L sided weakness Problem List Acute on chronic CVA Stage IV, metastatic prostate cancer Worsening of chronic dysphagia Left-sided weakness, chronic Multifocal opacities concerning for pneumonia COVID-19 positive MRI (03/06): Not numerous acute CVA Speech therapy consulted, patient with dysphagia, will need modified barium swallow Patient has CT scan with sclerotic lesions in lower lumbar spine, lymphadenopathy, enlarged prostate, concern for metastatic prostate cancer, he has a history of prostate cancer Given a combination of his more frequent and new strokes, stage IV cancer, had a long discussion with patient's daughter at bedside as well as on the phone with 2 other sons It seems most in line with what the patient would want to continue with PEG tube placement if needed, and discharged home on hospice once stable/improved Continue Zosyn for aspiration pneumonia, pulmonology consulted GI consulted for PEG tube placement Continue IV fluids, n.p.o. Neurology consulted Carotids and echocardiogram ordered Dispo: home hospice in 2-3 days, likely needs PEG Time Spent Managing Pts Care (In Minutes): 35
[2021-03-07] MEDS: CLOPIDOGREL 75 MG TABLET PO SCH (09:00)
[2021-03-07] MEDS: ENOXAPARIN 40 MG/0.4 ML SQ SCH (09:47)
[2021-03-07] MEDS: D5 0.9 NS 1,000 ML IV SCH ×2 (09:54→18:43)
--- NOTE | 2021-03-07 14:52 | RAD REPORT ---
EXAM DESCRIPTION: RAD - Barium Swallow Modified - 03/07/2021 2:42 pm CLINICAL HISTORY: Choking when eating food. Dysphagia FINDINGS: FLUORO TIME 2:19 MIN Fourteen fluoroscopic spot images obtained Pharyngeal residue: Vallecular and Pyriform ; honey by spoon, puree by spoon ; nectar by spoon Moderate UES opening, and moderate epiglottic deflection No aspiration
--- NOTE | 2021-03-07 14:58 | RAD REPORT ---
EXAM DESCRIPTION: USCarotid Artery Bilateral03/07/2021 2:48 pm CLINICAL HISTORY: cva COMPARISON: None FINDINGS: The velocity of the right internal carotid artery equals 45 cm/sec. The right ICA/CCA rati o .9 The velocity of the left internal carotid artery equals 77 cm/sec. The left ICA/CCA ratio 1 Mild plaque is present within the carotid arteries. The vertebral arteries demonstrate antegrade flow IMPRESSION: Mild plaque within the carotid arteries without evidence of a hemodynamically significan t stenosis NASCET criteria used. Mild 0-49% stenosis Moderate 50-69% stenosis Severe 70-99% stenosis
--- NOTE | 2021-03-07 15:39 | RAD REPORT ---
EXAM DESCRIPTION: MRI - Lumbar Spine Wo Con - 03/07/2021 3:25 pm CLINICAL HISTORY: Radiculopathy/ COMPARISON: None. TECHNIQUE: Sagittal T1, T2 and STIR weighted sequences were obtained. Axial T1 and T2 sequences were obtained through the lumbar disc levels. FINDINGS: T1 weighted sequences demonstrate diffusely diminished signal throughout the bones. Mild to moderate compression deformity of the L1 vertebral body appears chronic Mild spondylosis L1-2 Disc bulge, ligamentum flavum and facet hypertrophy L2-3. Thecal sac measures 9.5 millimeters. Mild n arrowing of the left and minimal narrowing of the right neural foramina. Disc bulge, ligamentum flavum and facet hypertrophy and osteophytes L3-4. Thecal sac measures 8 chanel meters. Mild to moderate narrowing of the neural foramina Disc bulge, osteophytes, ligamentum flavum and facet hypertrophy L4-5. The thecal sac measures a few millimeters. Moderate to more narrowing of the neural foramina bilaterally. Mild spondylosis L5-S1 IMPRESSION: Spondylosis L4-5 resulting in marked central spinal stenosis Diffusely abnormal signal throughout the bones. This may be secondary to metabolic disease or neoplas m.
[2021-03-07 16:15] LABS: Urine Appearance TURBID (Clear); Urine Bilirubin NEGATIVE (Negative); Urine Blood 3+ (Negative); Urine Color YELLOW (Yellow); Urine Glucose NEGATIVE (Negative); Urine Protein 2+ (Negative); Urine Specific Gravity 1.025 (1.005-1.030); Urine Urobilinogen 0.2 mg/dL (0.2-1.0); Urine pH 5.5 (5.0-7.0)
[2021-03-07 16:24] LABS: Urine Microscopic Reflex ORDER UMIC
[2021-03-07 16:40] LABS: Urine Bacteria <20 /HPF (NONE SEEN)
[2021-03-07] MEDS: MORPHINE 2 MG/ML SYR IV PRN (22:34)
--- NOTE | 2021-03-08 00:32 | CON ---
Reason For: Consultation called because of stroke. History Of Present Illness: Mr. 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 The patient's daughter was in the r oom. She said he suddenly had more difficulty swallowing along with continued difficulty ambulating and difficulty managing his bowel and bladder function and he was admitted to [facility] around the February 26. His daughter says that at some point there he declined and he was later found to be p ositive for COVID-19. She thought he had more sudden change in his swallowing and was brought to [facility] on the that is yesterday. His head CT scan showed no acute ischemic or hemorrh agic change. However, an MRI of his brain identified numerous punctate areas of nonhemorrhagic acute infarct scattered in the cerebral hemispheres and in the left thalamus and cerebellum. The appearan ce of the stroke suggested small emboli coming from possibly the heart that is outside of the neck ve ssels. An echocardiogram is pending. His carotid artery ultrasound study did show mild plaque in th e carotid arteries without evidence of hemodynamically significant stenosis. He has a barium swallow study actually showed moderate impairment of the epiglottic coverage, moderate impairment of the arnoldo lecula with retaining some fluid, but would be clearing. There was mild pyriform sinus retention. O verall, there was moderate oral phase impairment, pharyngeal phase impairment and due to that, there was a recommendation for alternate feeding methods. The patient's daughter was told that he may need a PEG tube, but they are debating that given his stage IV prostate cancer. His lumbar spine MRI ramón ntified severe L4-L5 canal with nerve root stenosis, which is likely a cause for his gait instability and bowel and bladder incontinence. Past Medical History: As noted. Social History: Patient resides at home with family members attending him. Allergies: CODEINE. Current Medications: 1.Plavix 75 mg daily. 2.Lovenox 40 mg subcutaneously daily. 3.He is on Zosyn 3.375 mg every 8 hours. Review of Systems: As noted. He has incontinence of urine, difficulty with bowel or bladder functioning and gait instab ility, dysphagia, failure to thrive, chronic low back pain, and difficulty articulating with slurred speech. Physical Examination: Vital Signs: Blood pressure 144/81, pulse 82 to 89, respiratory rate 16 to 22, temperature 98.3, oxy gen saturation 91%, weight 198 pounds, height 6 feet, BMI 26.9. General: Mr. Adams is resting in bed. He is in no significant distress. HEENT: He does appear normocephalic and atraumatic. Sclerae are anicteric. Some bruising noted in the upper and lower extremities. He otherwise has poor labial lingual guttural sounds. Neurologic: Cranial nerve examination, diffuse weakness in facial muscles and again difficulty with facial excursion and tongue protrusion. His motor examination, he is diffusely weak in the upper and lower extremities around 4/5. He does have decreased sensation to touch and temperature in the uppe r and lower extremities. He has poor coordination in upper and lower extremities and in terms of gai t, he does not ambulate and attempts will be made with physical therapy using a gait belt and a walke r. Laboratory Studies: White blood cell count 8.9, hemoglobin 10.1, INR 1.54. His chemistries are esse ntially unremarkable except his calcium slightly low at 8.0, magnesium normal at 2.3, LDL cholesterol 48, HDL cholesterol 41, TSH 2.34. Liver function studies show alkaline phosphatase elevated at 761, AST elevated at 152, direct bilirubin elevated at 0.3. Urinalysis shows trace esterase and 20 red b lood cells, many uric acid crystals, 3+ blood, 1+, ketones, 2+ protein. COVID-19 test is positive. Assessment And Plan: Mr. Adams is a 80-year-old patient with multiple likely cardioembolic strokes in the setting of hypercoagulable state due to COVID positivity and prostate cancer, mets to the low er back with stage IV. He does have severe L4-L5 central canal nerve root compression, which is impa iring gait and bowel and bladder control. His prognosis is very poor for good recovery. This was di scussed with the patient's family. He does have significant dysphagia and has not had solid food sin ce Saturday, today is Saturday. The patient may be a candidate for at least temporarily an NG tube pl acement; however, it may be difficult for him to have a PEG tube placed given all of his comorbid con ditions and recent stroke. In any event, his comorbid conditions should be addressed. Again, he may be a candidate for hospice at this stage. The patient's daughter is in the room and this was discus sed with her. LARA/GAEL Voice ID: [id number] Report ID: [id number]
[2021-03-08] MEDS: D5 0.9 NS 1,000 ML IV SCH ×3 (00:46→22:12)
[2021-03-08] MEDS: PIPER TAZO 3.375 GM in NA CHLORIDE 0.9% 100 ML IV SCH ×3 (00:46→17:42)
[2021-03-08 03:48] LABS: Absolute Lymphocytes (CBC) 0.7 K/uL (0.7-4.9); Hematocrit 27.9 % (39.6-49.0); Lymphocytes % 8.8 % (15.3-44.8); MPV 6.6 fL (7.6-11.3); RBC Red Blood Cell Count 3.27 M/uL (4.33-5.43)
[2021-03-08 04:18] LABS: ALT/SGPT 19 U/L (12-78); AST/SGOT 64 U/L (15-37); Albumin 1.8 g/dL (3.4-5.0); Alkaline Phosphatase 455 U/L (45-117); BUN Blood Urea Nitrogen 15 mg/dL (7-18); Bicarbonate 27 mmol/L (21-32); Bilirubin Total 0.6 mg/dL (0.2-1.0); Ferritin 4549.1 ng/mL (26-388); Glucose Level 134 mg/dL (74-106); Magnesium 2.2 mg/dL (1.8-2.4); Potassium 3.8 mmol/L (3.5-5.1); Protein, Total 5.8 g/dL (6.4-8.2); Sodium Level 140 mmol/L (136-145)
[2021-03-08] MEDS ORDERED: KCL 20 MEQ/100 mL IVPB 20 MEQ/100 ML BAG IV SCH (05:00)
--- NOTE | 2021-03-08 06:45 | P.PN ---
Date of Service: 03/08/21 Subjective: reports feeling about the same, no significant changes chart review shows patient on 6L NC, however in room, patient breathing comfortably on 2L Daughter states patient was 99-100% on 6L Urine darker today ROS: 10 point ROS unable to be fully obtained Physical exam GEN: Alert, follows commands HEENT: Normal conjunctiva, sclera anicteric CV: Regular rate and rhythm, no edema Pulm: Non-labored respirations on 2L NC ABD: Soft, non-tender, non-distended Integumentary: No rashes Neuro: L sided weakness : tovar bag with dark urine, possibly blood-tinged Problem List Acute on chronic CVA Stage IV, metastatic prostate cancer Worsening of chronic dysphagia Left-sided weakness, chronic Multifocal opacities concerning for pneumonia COVID-19 positive MRI (03/06): Not numerous acute CVA Speech therapy consulted, patient with dysphagia, will need modified barium swallow Patient has CT scan with sclerotic lesions in lower lumbar spine, lymphadenopathy, enlarged prostate, concern for metastatic prostate cancer, he has a history of prostate cancer Given a combination of his more frequent and new strokes, stage IV cancer, had a long discussion with patient's daughter at bedside as well as on the phone with 2 other sons It seems most in line with what the patient would want to continue with PEG tube placement if needed, and discharged home on hospice once stable/improved Continue Zosyn for aspiration pneumonia, pulmonology consulted GI consulted for PEG tube placement, plan for tomorrow Continue IV fluids, n.p.o. speech evaluated, concern for aspiration, recommended PEG Neurology consulted carotid ok echo pending check UA Dispo: home hospice in ~2 days, likely needs PEG Time Spent Managing Pts Care (In Minutes): 35
--- NOTE | 2021-03-08 07:31 | EKG ---
Test Date: 2021-03-06 Test Time: 08:48:10 Burrer Machine: REE MEASUREMENT RESULTS: Intervals: Rate: 86 OK: 164 QRSD: 92 QT: 390 QTc: 466 [place]: P: 65 OK: 164 QRS: 34 T: 108 INTERPRETIVE STATEMENTS: Normal sinus rhythm Cannot rule out Anteroseptal infarct, age undetermined Abnormal ECG No previous ECG available for comparison Electronically Signed On 03-08-21 07:26:36 WELT STITCHER by Adan Antonio
--- NOTE | 2021-03-08 07:50 | RAD REPORT ---
EXAM DESCRIPTION: RAD - Chest Single View - 03/08/2021 7:21 am CLINICAL HISTORY: hypoxia, covid, pneumonia COMPARISON: Chest Single View dated 03/06/2021 FINDINGS: Lines: None. Lungs: Mild worsened aeration of the left lung base. Mild scattered bilateral airspace disease is oth erwise unchanged. Pleural: No significant pleural effusions or pneumothorax. Cardiac: The heart size is within normal limits. Bones: No acute fractures. Other: IMPRESSION: Worsened aeration of the left lung base could reflect atelectasis and/or worsening pneum onia. Other opacities bilaterally are similar.
[2021-03-08] MEDS: MORPHINE 2 MG/ML SYR IV PRN ×2 (08:13→18:25)
[2021-03-08] MEDS: CLOPIDOGREL 75 MG TABLET PO SCH (09:00)
[2021-03-08] MEDS: METHYLPREDNISOLONE 125 MG INJ IV SCH ×2 (10:35→22:11)
[2021-03-08] MEDS: ENOXAPARIN 40 MG/0.4 ML SQ SCH (10:37)
[2021-03-08] MEDS ORDERED: ENOXAPARIN 60 MG/0.6 ML SQ ONE (12:00)
--- NOTE | 2021-03-08 20:54 | PN ---
Subjective: Mr. Adams is resting in bed. He completed lots of studies earlier and everything yest erday and today. He does not have productive speech, he uses gestures, nods, and facial expressions to communicate. He voices by mouthing no significant pain and is able to give thumbs-up signs. His daughter is in the room and communication was with daughter as well. Objective: Vital Signs: Blood pressure 167/81, pulse 77, respiratory rate 18, temperature 98.0, oxy gen saturation 93% to 97% on nasal cannula oxygen. General: Mr. Adams is resting in bed. He is in no significant distress. Neck: There is a defect in the tracheal area that is stable and chronic and is not localized. Extremities: He has movements in the upper and lower extremities, slow. He does move his right more than left upper extremity. Some difficulty mobilizing the lower extremities. Laboratory Data: Most recent chest x-ray today shows worsening aeration in the left lower lobe, like ly reflecting atelectasis or worsening pneumonia. Other opacities are noted bilaterally. It should be noted previously, brain MRI shows numerous punctate areas of nonhemorrhagic acute infarct in the c erebral hemispheres as well as the left thalamus and cerebellum. Also, there was advanced atrophy wi th severe white matter small vessel ischemic disease and old multiple strokes. His lumbar spine MRI shows marked central canal stenosis at L4-L5 and likely metastatic neoplastic disease throughout the lumbar vertebrae. His echocardiogram is still pending. Blood work shows white blood cell count 8.3, hemoglobin 9.5. His chemistries showed essentially unremarkable except chloride 108, glucose 134, c alcium 8.3. Procalcitonin is 8.35. Assessment: Mr. Adams is a 80-year-old patient with multiple medical issues and neurological probl ems including multiple strokes in the setting of COVID positivity and metastatic prostate cancer. He also has pneumonia involving both lobes and is significantly debilitated. Plan: Given the patient's poor prognosis with stage IV prostate cancer and severe lumbar L4-L5 centr al canal stenosis, he is at significant risk of worsening. He currently has likely aspiration pneumo maddie and has not had any significant nutrition for about 4 days. The family does not want to pass an NG tube. The patient planned to have a PEG tube placed by Dr. Hale, drapery counselor tomorrow. His prognosis again is poor for a good recovery given his comorbid conditions including stage IV ca ncer, COVID positivity with pneumonia bilaterally, and his significant debility. Hospice is likely t o be more appropriate and it may be done at home and this was discussed with the patient's daughter. LARA/GAEL Voice ID: [id number] Report ID: [id number]
[2021-03-08] MEDS ORDERED: ENOXAPARIN 100 MG/ML SYR SQ SCH (21:00)
[2021-03-08 23:31] LABS: Urine Appearance TURBID (Clear); Urine Bilirubin ND (Negative); Urine Blood ND (Negative); Urine Color RED (Yellow); Urine Glucose ND (Negative); Urine Microscopic Reflex ORDER UMIC; Urine Protein ND (Negative); Urine Urobilinogen ND mg/dL (0.2-1.0); Urine pH ND (5.0-7.0)
[2021-03-08 23:32] LABS: Urine Specific Gravity ND (1.005-1.030)
[2021-03-08 23:38] LABS: Urine RBC TNTC /HPF (NONE SEEN)
[2021-03-08 23:39] LABS: Urine Bacteria <20 /HPF (NONE SEEN); Urine Urothelial Cells <5 /HPF (NONE SEEN)
[2021-03-09] MEDS: PIPER TAZO 3.375 GM in NA CHLORIDE 0.9% 100 ML IV SCH ×3 (00:48→17:52)
[2021-03-09 04:01] LABS: Potassium 4.4 mmol/L (3.5-5.1)
--- NOTE | 2021-03-09 05:44 | P.PN ---
Date of Service: 03/09/21 Subjective: developed johnna hematuria overnight yesterday had slight blood-tinged appearing urine, now dark red otherwise no new complaints. patient states he is "ok" no nausea/vomiting, no abdominal discomfort ROS: 10 point ROS unable to be fully obtained - difficulty to understand patient Physical exam GEN: Alert, follows commands, seems to understand what is being said, difficulty speaking clearly HEENT: Normal conjunctiva, sclera anicteric CV: Regular rate and rhythm, no edema Pulm: Non-labored respirations on 2L NC ABD: Soft, non-tender, non-distended Integumentary: No rashes Neuro: L sided weakness, weak voice : tovar bag with dark red - johnna blood Problem List Acute on chronic CVA Stage IV, metastatic prostate cancer Worsening of chronic dysphagia Left-sided weakness, chronic Multifocal opacities concerning for pneumonia, likely aspiration COVID-19 positive MRI (03/06): numerous acute CVA Speech therapy consulted, patient with dysphagia, s/p MBS, recommend PEG tube vs comfort feeds Family and patient want PEG tube GI consulted - plan for procedure today Continue Zosyn for aspiration pneumonia, pulmonology consulted Continue IV fluids, n.p.o. Neurology consulted - concern for embolic CVA, recommend minimum aspirin, can start after PEG. Echo resulted today - +ASD Patient received therapeutic lovenox yesterday x1, and afterwards developed more johnna hematuria unclear source of bleed. will obtain renal U/S Urology consulted irrigate if needed, currently no significant clotting Patient has CT scan with sclerotic lesions in lower lumbar spine, lymphadenopathy, enlarged prostate, concern for metastatic prostate cancer, he has a history of prostate cancer Given a combination of his more frequent and new strokes, stage IV cancer, had a long discussion with patient's daughter at bedside as well as on the phone with 2 other sons It seems most in line with what the patient would want to continue with PEG tube placement, and discharged home on hospice once stable/improved Dispo: home hospice in ~1-2 days, needs PEG, hematuria Time Spent Managing Pts Care (In Minutes): 35
[2021-03-09 06:27] LABS: Hematocrit 30.4 % (39.6-49.0); MPV 6.8 fL (7.6-11.3); RBC Red Blood Cell Count 3.51 M/uL (4.33-5.43)
--- NOTE | 2021-03-09 07:41 | RAD REPORT ---
EXAM DESCRIPTION: US - Renal Ultrasound-Complete - 03/09/2021 7:04 am CLINICAL HISTORY: hematuria, prostate cancer COMPARISON: Barium Swallow Modified dated 03/07/2021 FINDINGS: Increased echogenicity of renal cortices. The right kidney measures 11.5 cm. 4.8 cm right renal cyst. The left kidney measures 9.2 cm. No hydronephrosis, focal mass or perinephric fluid. The bladder is decompressed via Morris catheter. IMPRESSION: No evidence hydronephrosis. Increased echogenicity of the kidneys could reflect medical renal disease.
--- NOTE | 2021-03-09 07:44 | ECHO ---
HEIGHT: 6 ft 0 in WEIGHT: 198 lb 0 oz DATE OF STUDY: 03/08/[address]: Wilner Maldonado MD 2-DIMENSIONAL: YES M.MODE: YES DOPPLER: YES COLOR FLOW: YES TDS: NO PORTABLE: NO DEFINITY: NO BUBBLE STUDY: YES DIAGNOSIS: EMBOLIC CEREBRAL VASCULAR ACCIDENT CARDIAC HISTORY: CATHERIZATION: NO SURGERY: NO PROSTHETIC VALVE: NO PACEMAKER: NO MEASUREMENTS (cm) DIASTOLIC (NORMALS) SYSTOLIC (NORMALS) IVSd (0.6-1.2) LA Diam (1.9-4.0) LVEF >50% LVIDd (3.5-5.7) LVIDs (2.0-3.5) %FS % LVPWd (0.6-1.2) Ao Diam (2.0-3.7) 2 DIMENSIONAL ASSESSMENT: RIGHT ATRIUM: NORMAL LEFT ATRIUM: NORMAL RIGHT VENTRICLE: NORMAL LEFT VENTRICLE: NORMAL TRICUSPID VALVE: NORMAL MITRAL VALVE: NORMAL PULMONIC VALVE: NORMAL AORTIC VALVE: NORMAL PERICARDIAL EFFUSION: NONE AORTIC ROOT: NORMAL LEFT VENTRICULAR WALL MOTION: NORMAL. DOPPLER/COLOR FLOW: MILD TRICUSPID REGURGITATION. COMMENTS: NORMAL LEFT VENTRICULAR SIZE AND FUNCTION. BUBBLE STUDY CONSISTANT WITH ATRIAL SEPTAL DEFECT. MILD TRICUSPID REGURGITATION - NORMAL RIGHT VENTRICULAR SYSTOLIC PRESSURE. TECHNOLOGIST: CRISTIAN GUADALUPE/ SUSANA VERDE
[2021-03-09] MEDS: MORPHINE 2 MG/ML SYR IV PRN ×3 (08:41→21:13)
[2021-03-09] MEDS: METHYLPREDNISOLONE 125 MG INJ IV SCH ×2 (08:42→21:12)
--- NOTE | 2021-03-09 09:41 | RAD REPORT ---
EXAM DESCRIPTION: US - Extrem Venous W Compress Shakir - 03/09/2021 8:58 am CLINICAL HISTORY: Abnormal labs COMPARISON: None. TECHNIQUE: Real-time sonographic evaluation of the bilateral lower extremity deep venous systems was performed. FINDINGS: Normal compressibility, flow augmentation, phasic flow and spontaneous flow is identified in both the left and right lower extremity deep venous systems. No intraluminal filling defects seen. IMPRESSION: No DVT in either lower extremity.
[2021-03-09] MEDS ORDERED: LIDOCAINE 2% MPF 5 ML VIAL ONE (11:42)
[2021-03-09] MEDS ORDERED: ONDANSETRON 4 MG/2 ML VIAL ONE (11:42)
[2021-03-09] MEDS ORDERED: propofoL 200 MG/20 ML VIAL IV ONE (11:42)
[2021-03-09] MEDS ORDERED: NA CHLORIDE 0.9% 500 ML ONE (12:01)
[2021-03-09] MEDS ORDERED: LIDOCAINE JELLY 2% 5 ML SYRINGE TOP ONE (12:05)
[2021-03-09] MEDS ORDERED: JEVITY 1.5 CAL LIQUID 1,000 ML BOT RTH SCH (17:00)
[2021-03-09] MEDS: D5 0.9 NS 1,000 ML IV SCH (17:05)
--- NOTE | 2021-03-09 17:42 | RAD REPORT ---
EXAM DESCRIPTION: US - Urinary Bladder - 03/09/2021 5:23 pm CLINICAL HISTORY: patency of catheter Pelvic pain COMPARISON: No comparisons TECHNIQUE: Real-time sonographic evaluation of the urinary bladder was performed. FINDINGS: Morris catheter bulb is visualized within the bladder which is moderately decompressed.
[2021-03-10] MEDS: PIPER TAZO 3.375 GM in NA CHLORIDE 0.9% 100 ML IV SCH ×3 (00:38→16:06)
[2021-03-10] MEDS: D5 0.9 NS 1,000 ML IV SCH ×2 (00:40→19:45)
[2021-03-10 03:59] LABS: Absolute Lymphocytes (CBC) 0.4 K/uL (0.7-4.9); MPV 6.9 fL (7.6-11.3); RBC Red Blood Cell Count 3.71 M/uL (4.33-5.43)
[2021-03-10 04:21] LABS: C-Reactive Protein 81.6 mg/L (<3.00); Magnesium 2.4 mg/dL (1.8-2.4)
--- NOTE | 2021-03-10 06:04 | P.PN ---
Date of Service: 03/10/21 Subjective: s/p PEG placement yesterday starting tube feeds today reports itching along R flank where strap was ROS: 10 point ROS unable to be fully obtained - difficulty to understand patient Physical exam GEN: Alert, follows commands, weak voice HEENT: Normal conjunctiva, sclera anicteric CV: Regular rate and rhythm, no edema Pulm: Non-labored respirations on 3L NC ABD: Soft, non-tender, non-distended, PEG Tube in place Integumentary: No rashes Neuro: L sided weakness, weak voice : tovar bag with yellow urine Problem List Acute on chronic CVA Stage IV, metastatic prostate cancer Worsening of chronic dysphagia Left-sided weakness, chronic Multifocal opacities concerning for pneumonia, likely aspiration COVID-19 positive Hematuria MRI (03/06): numerous acute CVA Speech therapy consulted, patient with dysphagia, s/p MBS, recommend PEG tube vs comfort feeds Family and patient want PEG tube GI consulted - s/p PEG on 03/09. start tube feeds 03/10 Continue Zosyn for aspiration pneumonia, pulmonology consulted Continue IV fluids, n.p.o.; titrate IVF as tube feeds increase / tolerated Neurology consulted - concern for embolic CVA, recommend minimum aspirin, can start after PEG. Echo resulted today - +ASD, negative DVTs in b/l lower extremities Patient received therapeutic lovenox 03/08 x1, and afterwards developed more johnna hematuria renal U/S ok, Urology consulted - placed 3 way cath, irrigated. improved Patient has CT scan with sclerotic lesions in lower lumbar spine, lymphadenopathy, enlarged prostate, concern for metastatic prostate cancer, he has a history of prostate cancer Given a combination of his more frequent and new strokes, stage IV cancer, had a long discussion with patient's daughter at bedside as well as on the phone with 2 other sons PEG placement and home with hospice Dispo: home hospice in ~1-2 days Time Spent Managing Pts Care (In Minutes): 35
[2021-03-10] MEDS: MORPHINE 2 MG/ML SYR IV PRN ×3 (06:35→21:52)
--- NOTE | 2021-03-10 08:38 | RAD REPORT ---
EXAM DESCRIPTION: Isai Single View03/10/2021 5:53 am CLINICAL HISTORY: Chest pain COMPARISON: March 08 2021 FINDINGS: Allowing for differences in inspiration there probably has been no significant change in t he bilateral pulmonary opacities. Heart is borderline enlarged IMPRESSION: No significant change bilateral pulmonary opacities probably pneumonia
[2021-03-10] MEDS ORDERED: DIPHENHYDRAMINE 25 MG TAB/CAP PO PRN (09:42)
[2021-03-10] MEDS: METHYLPREDNISOLONE 125 MG INJ IV SCH ×2 (09:43→21:52)
[2021-03-10] MEDS: OXYBUTYNIN CHLORIDE 5 MG TAB PO SCH ×2 (16:51→21:52)
--- NOTE | 2021-03-10 19:47 | CON ---
Date of Consultation: 03/09/2021 The patient is admitted on the 4th floor in room 410. Reason For Consultation: Gross hematuria. History Of Present Illness: Mr. Adams is a 80-year-old gentleman with a history of multiple prior strokes, history of dysphagia, and a recent admission for dysphagia at [facility], who was brou ght to the emergency department because the patient was not tolerating his dysphagia diet and the dina ghter was concerned that his mental status had also declined. CT scan done in the emergency departme showed no acute process, but subsequent workup including an MRI of the brain was suspicious for nu merous acute cerebrovascular incidents. The patient had undergone a discussion with his program development manager ab out hospice care because he has stage IV metastatic prostate cancer in addition to the sequelae of th e strokes. He was also noted to be COVID-19 positive. Since the beginning of February, as a result o f the strokes, he had a urethral Morris catheter in place. Within the last several days, that cathete r turned from being clear yellow urine to bloody. Physical Examination: The patient is awake, but not responsive in any significant fashion except to noxious stimuli or pain . There is no dyspnea or signs of respiratory distress. A urethral Morris catheter is in place and the efflux of urine is pink at this time. The nurse had izzy ribeiro irrigated the catheter. A 16-[place] Morris catheter was in place. Bladder irrigation and urethral Morris catheter exchange. Procedure Note: I initially started by irrigating the indwelling urethral catheter and it was able t o irrigate nicely and with ease. The efflux of urine after a couple of rounds of irrigation with a 6 0 cc catheter tip syringe and sterile water did clarify the urine significantly. However, because of the persistence of the hematuria, I recommended exchange of the catheter to stabilize his circumstan ce, since it is likely the hematuria is a result of his prostate cancer which is currently bone metas tatic. Also, given the patient's history of smoking, the potential for bladder cancer also exists. As a result, I removed the indwelling 16-[place] urethral Morris catheter and placed a 20-[place] coude tipped Morris catheter into his bladder with some slight difficulty in assuring actual intravesical lo calization. Eventually with some manipulation, I was able to navigate the catheter until I felt it w as comfortably within the bladder, and I filled the balloon with 10 cc of sterile water and an additi onal 5 cc of sterile water. Of note, a lidocaine Uro-Jet was applied for local anesthesia before dada cement of the catheter and did pass with ease into his urethra. Betadine was used to prep his genita jimbo prior to placement of the catheter. I then again irrigated his bladder copiously with several 60 cc syringe fulls of sterile water, and the urine was immediately clear suggestive of the potential f or the bleeding being prostatic urethral in origin, now tamponaded by the presence of the 20-[place] F oley catheter. As a result, I secured the catheter to his StatLock and connected back to a leg bag. Assessment And Recommendations: This is a 80-year-old gentleman with metastatic prostate cancer and recent history of multiple strokes with dysphagia and some weakness, now with urinary retention requi ring placement of a Morris catheter and interval development of gross hematuria. Since I suspect the hematuria is of prostatic urethral origin and is now tamponaded by the presence o f the larger catheter, we will leave this in place and see him in followup. I counseled his daughter on the potential considerations relative to his recent determination to go [facility] hosp[facility] care. In other words, there may be little benefit to an evaluation including a cystoscop y in a patient who is mentally not completely with it and able to cooperate with the exam if there is anticipated mortality within a short period of time. They will consider these options and will foll ow up accordingly. Addendum: 03/10/2021, received additional communication from the program development manager that there has been some sporadic efflux of urine around the catheter from the urethra. A bladder ultrasound was obtained, wh ich I reviewed and does reveal the presence of the catheter properly seated within the bladder with t he balloon inflated and the bladder mostly decompressed. As a result, I counseled that if necessary, Ditropan can be used to quell the bladder spasms, which also are a consequence of the recent stroke. WR/MODL Voice ID: [id number] Report ID: [id number]
[2021-03-11] MEDS: PIPER TAZO 3.375 GM in NA CHLORIDE 0.9% 100 ML IV SCH ×3 (01:25→17:00)
[2021-03-11] MEDS: MORPHINE 2 MG/ML SYR IV PRN ×2 (02:56→11:08)
[2021-03-11 03:50] LABS: Absolute Lymphocytes (CBC) 0.3 K/uL (0.7-4.9); Hematocrit 26.8 % (39.6-49.0); Lymphocytes % 3.4 % (15.3-44.8); MPV 6.7 fL (7.6-11.3); RBC Red Blood Cell Count 3.13 M/uL (4.33-5.43)
[2021-03-11] MEDS: D5 0.9 NS 1,000 ML IV SCH (04:06)
[2021-03-11 04:13] LABS: BUN Blood Urea Nitrogen 26 mg/dL (7-18); Bicarbonate 29 mmol/L (21-32); Ferritin 1891.9 ng/mL (26-388); Glucose Level 149 mg/dL (74-106); Magnesium 2.5 mg/dL (1.8-2.4); Potassium 3.7 mmol/L (3.5-5.1); Sodium Level 147 mmol/L (136-145)
[2021-03-11] MEDS ORDERED: KCL 20 MEQ/100 mL IVPB 20 MEQ/100 ML BAG IV SCH (06:00)
--- NOTE | 2021-03-11 06:22 | P.PN ---
Date of Service: 03/11/21 Subjective: ROS: 10 point ROS unable to be fully obtained - difficulty to understand patient Physical exam GEN: Alert, follows commands, weak voice HEENT: Normal conjunctiva, sclera anicteric CV: Regular rate and rhythm, no edema Pulm: Non-labored respirations on 3L NC ABD: Soft, non-tender, non-distended, PEG Tube in place Integumentary: No rashes Neuro: L sided weakness, weak voice : tovar bag with yellow urine Problem List Acute on chronic CVA Stage IV, metastatic prostate cancer Worsening of chronic dysphagia Left-sided weakness, chronic Multifocal opacities concerning for pneumonia, likely aspiration COVID-19 positive Hematuria MRI (03/06): numerous acute CVA Speech therapy consulted, patient with dysphagia, s/p MBS, recommend PEG tube vs comfort feeds Family and patient want PEG tube GI consulted - s/p PEG on 03/09. start tube feeds 03/10 Continue Zosyn for aspiration pneumonia, pulmonology consulted Continue IV fluids, n.p.o.; titrate IVF as tube feeds increase / tolerated Neurology consulted - concern for embolic CVA, recommend minimum aspirin, can start after PEG. Echo resulted today - +ASD, negative DVTs in b/l lower extremities Patient received therapeutic lovenox 03/08 x1, and afterwards developed more johnna hematuria renal U/S ok, Urology consulted - placed 3 way cath, irrigated. improved Patient has CT scan with sclerotic lesions in lower lumbar spine, lymphadenopathy, enlarged prostate, concern for metastatic prostate cancer, he has a history of prostate cancer Given a combination of his more frequent and new strokes, stage IV cancer, had a long discussion with patient's daughter at bedside as well as on the phone with 2 other sons PEG placement and home with hospice Dispo: home hospice in ~1-2 days Time Spent Managing Pts Care (In Minutes): 35
[2021-03-11] MEDS: METHYLPREDNISOLONE 125 MG INJ IV SCH (09:08)
[2021-03-11] MEDS: OXYBUTYNIN CHLORIDE 5 MG TAB PO SCH (09:09)
[2021-03-11 11:25] VITALS: O2SAT 96
[2021-03-11 14:05] VITALS: BP 146/74; TEMP 98
--- NOTE | 2021-03-11 14:18 | P.DS ---
Admission Date: 03/06/21 Discharge Date: 03/11/21 Disposition: HOSPICE-HOME Discharge Condition: FAIR Reason for Admission: Dysphagia Consultations: Neurology - Dr. Osuna GI - Dr. Hale Pulmonology - Dr. Fernandez Urology - Dr. Berkowitz Procedures: CXR (03/06) Lungs: A few small patchy areas of opacities are present in the right upper lobe. Left lung is clear. Pleural: No significant pleural effusions or pneumothorax. Cardiac: The heart size is within normal limits. Bones: No acute fractures. Other: Torturous thoracic aorta. IMPRESSION: Ill-defined nonspecific opacities in the right upper lobe could reflect mild infection or inflammation. CT head (03/06): IMPRESSION: Remote and age indeterminate infarcts which could be better evaluated with MRI. No acute intracranial hemorrhage. No acute large vascular territory infarct is identified. MRI Brain (03/06): IMPRESSION: Numerous punctate areas of nonhemorrhagic acute infarction scattered in the cerebral hemispheres, left thalamus and left cerebellum. Foci are scattered in multiple vascular distributions which would suggest small emboli coming from outside of the head or neck. Patient has a baseline of advanced for age atrophy, severe white matter chronic ischemic change and old infarction changes. MRI Lumbar Spin (03/07): FINDINGS: T1 weighted sequences demonstrate diffusely diminished signal throughout the bones. Mild to moderate compression deformity of the L1 vertebral body appears chronic Mild spondylosis L1-2 Disc bulge, ligamentum flavum and facet hypertrophy L2-3. Thecal sac measures 9.5 millimeters. Mild narrowing of the left and minimal narrowing of the right neural foramina. Disc bulge, ligamentum flavum and facet hypertrophy and osteophytes L3-4. Thecal sac measures 8 millimeters. Mild to moderate narrowing of the neural foramina Disc bulge, osteophytes, ligamentum flavum and facet hypertrophy L4-5. The thecal sac measures a few millimeters. Moderate to more narrowing of the neural foramina bilaterally. Mild spondylosis L5-S1 IMPRESSION: Spondylosis L4-5 resulting in marked central spinal stenosis Diffusely abnormal signal throughout the bones. This may be secondary to metabolic disease or neoplasm. Echo (03/08): normal LVEF bubble study consistant with atrial septal defect. mild TR. normal RV systolic pressure CXR (03/08): IMPRESSION: Worsened aeration of the left lung base could reflect atelectasis and/or worsening pneumonia. Other opacities bilaterally are similar. 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 Daughter also reports patient mental status has declined lately and they are intermittent periods he becomes absent and just stares. Head CT done in the emergency department showed no acute process. Chest x-ray demonstrated right upper lobe opacities. Patient was confusion during my examination in the ED. He is hospitalized for further management. Hospital Course: Found to have numerous new acute CVAs scattered throughout the brain, concerning for embolic stroke. Echo was positive for ASD Neurology was consulted, recommended low-dose aspirin at minimum. R sided opacities + worsened dysphagia concerning for aspiration pneumonia. Patient empirically treated with zosyn. Patient with aspiration noted by speech therapy. Recommended PEG tube feeds vs comfort feeds. Family and patient decided on PEG tube, so GI was consulted and patient had PEG placed by Dr. Hale. Patient found to have esophageal stenosis as well, which underwent dilatation as well. Patient was started on tube feeds and tolerated well. COVID-19 patient developed mild b/l pulmonary opacities on CXR. Treated with steroids. Hematuria started after given one dose of therapeutic lovenox. Went from blood-tinged to johnna blood. Resolved with catheter exchange to allow for irrigation. Dr. Berkowitz evaluated the patient Discharged home with home hospice Vital Signs/Physical Exam: Temp Pulse Resp BP Pulse Ox 98.0 F 50 16 146/74 H 98 03/11/21 12:00 03/11/21 12:00 03/11/21 12:00 03/11/21 12:00 03/11/21 12:00 General: Alert, In no apparent distress, Other (difficult to understand) HEENT: Sclerae nonicteric Respiratory: Clear to auscultation bilaterally, Diminished Cardiovascular: No edema, Regular rate/rhythm, No rubs Gastrointestinal: Soft and benign, Non-distended, No tenderness Musculoskeletal: No tenderness Integumentary: No rashes, No significant lesion Neurological: Normal affect, Other (L hand in flexed position, contracted) Urinary: Morris catheter Laboratory Data at Discharge: WBC 9.40 K/uL (4.3-10.9) D 03/11/21 03:29 Hgb 8.8 g/dL (13.6-17.9) L 03/11/21 03:29 Hct 26.8 % (39.6-49.0) L D 03/11/21 03:29 Plt Count 252 K/uL (152-406) 03/11/21 03:29 PT 17.8 SECONDS (9.5-12.5) H 03/06/21 09:16 INR 1.54 03/06/21 09:16 Sodium 147 mmol/L (136-145) H 03/11/21 03:29 Potassium 3.7 mmol/L (3.5-5.1) 03/11/21 03:29 BUN 26 mg/dL (7-18) H 03/11/21 03:29 Creatinine 0.81 mg/dL (0.55-1.3) 03/11/21 03:29 Glucose 149 mg/dL (74-106) H 03/11/21 03:29 Phosphorus 2.9 mg/dL (2.5-4.9) 03/07/21 03:06 Magnesium 2.5 mg/dL (1.8-2.4) H 03/11/21 03:29 Total Bilirubin 0.6 mg/dL (0.2-1.0) 03/08/21 03:04 AST 64 U/L (15-37) H 03/08/21 03:04 ALT 19 U/L (12-78) 03/08/21 03:04 Alkaline Phosphatase 455 U/L (45-117) H 03/08/21 03:04 Triglycerides 76 mg/dL (<150) 03/07/21 03:06 Cholesterol 104 mg/dL (<200) 03/07/21 03:06 HDL Cholesterol 41 mg/dL (40-60) 03/07/21 03:06 Cholesterol/HDL Ratio 2.54 03/07/21 03:06 Home Medications: Docusate [Colace Cap*] 1 mg PO DAILY 03/07/21 Melatonin 10 mg PO BEDTIME 03/07/21 Amoxicillin/Potassium Clav [Augmentin 875-125 Tablet] 1 each FT BID 5 Days #10 tablet 03/11/21 Oxybutynin Chloride [Ditropan*] 5 mg FT BID 15 Days #30 tab 03/11/21 predniSONE [Prednisone] 20 mg FT SEECOM 14 Days #21 tablet 03/11/21 New Medications: Amoxicillin/Potassium Clav [Augmentin 875-125 Tablet] 1 each FT BID 5 Days #10 tablet Oxybutynin Chloride [Ditropan*] 5 mg FT BID 15 Days #30 tab predniSONE [Prednisone] 20 mg FT SEECOM 14 Days #21 tablet Physician Discharge Instructions: You were found to have numerous new acute CVAs (strokes) in different areas of your brain, concerning for an embolic stroke. You were evaluated by Dr. Osuna, neurology, recommended low-dose aspirin at minimum. Due to the bleeding you had, recommend starting in 5 days. May need to discontinue if bleeding recurs. Further evaluation revealed a small atrial septal defect. (hole in your heart), which increases the risk for a blood clot to get to your brain and cause a stroke. Review of prior CT imaging, revealed a prior diagnosis of metastatic (stage IV) prostate cancer. You are found to be COVID-positive, and on imaging had bilateral pneumonia with slightly worse on the right side. This is consistent with COVID-19 pneumonia, with possible complication by aspiration pneumonia. You received 5 days of IV antibiotics, and discharged with five more days. You are also discharged home with 2 weeks of steroids to help with your COVID-19 pneumonia. Speech therapy was consulted and after evaluation, I felt that you are at high risk of aspiration, and recommended a PEG tube for nutrition vs comfort feeds with risk of aspiration. You stated you wanted the feeding tube, and this was done by Dr. Hale. At the time of the PEG tube placement you were noted to have an esophageal stricture, which was dilated during the same procedure. During hospitalization, course was complicated with some blood in your urine. [place] to be due to to minor trauma from the Morris catheter in addition to receiving a dose of blood thinners increasing your sensitivity to bleed. Dr. Berkowitz, urology, evaluated you, he replaced the Morris catheter with a larger catheter, and the bleeding resolved after some irrigation and stopping t he blood thinners. You were started on Ditropan to help with bladder spasms. Diet: jevity Activity: Fall precautions Followup: NONE,NONE [Primary Care Provider] - Time spent managing pt's care (in minutes): 45
== END 2021-03-11 18:20 | disposition hospice, home (50) | DRG 64 ==
LOC: ER 07:08 → ERHOLD 12:27 → 4TH 03-07 00:36
PROVIDERS: ADMIT Internal Medicine; ATTEND Hospitalist
DX: I63.9 Cerebral infarction, unspecified (principal); U07.1 COVID-19; J69.0 Pneumonitis due to inhalation of food and vomit; J12.82 Pneumonia due to coronavirus disease 2019; G81.94 Hemiplegia, unspecified affecting left nondominant side; C79.51 Secondary malignant neoplasm of bone; Q21.1 Atrial septal defect; C61 Malignant neoplasm of prostate; I10 Essential (primary) hypertension; K22.2 Esophageal obstruction; M24.542 Contracture, left hand; I25.2 Old myocardial infarction; R32 Unspecified urinary incontinence; R13.10 Dysphagia, unspecified; R62.7 Adult failure to thrive; R47.81 Slurred speech; R53.1 Weakness; R31.0 Gross hematuria; R33.9 Retention of urine, unspecified; Z88.5 Allergy status to narcotic agent; Z86.73 Personal history of transient ischemic attack (TIA), and cerebral infarction without residual deficits; Z79.02 Long term (current) use of antithrombotics/antiplatelets; Z79.899 Other long term (current) drug therapy; Z68.26 Body mass index [BMI] 26.0-26.9, adult; Z79.52 Long term (current) use of systemic steroids
CPT/HCPCS: 36415; 70450; 70551; 71045; 72148; 74230; 76770; 76857; 80048; 80053; 80061; 80076; 81003; 81015; 82728; 83735; 83880; 84100; 84145; 84443; 84484; 85025; 85027; 85610; 86140; 87040; 87086; 87088; 92610; 92611; 93005; 93306; 93880; 93970; 94760; 96361; 96374; 96375; 99285; C1726; J1650; J2270; J2405; J2543; J2704; J2930; J3010; J3480; J7030; J7040; J7042; U0003